=== PATIENT | male | born 1975 | race Caucasian/White ===

== ENCOUNTER 2024-02-29 06:09 | Observation (INO) ==
--- NOTE | 2024-02-10 12:55 | PAT Medication Instructions ---
Medication Instructions Date of Service February 10, 2024 Home Medications atorvastatin 20 mg tablet 20 mg PO HS ibuprofen 200 mg tablet 600 - 800 mg PO QID PRN Pain irbesartan 150 mg tablet 150 mg PO QAM venlafaxine 150 mg capsule,extended release 24 hr 150 mg PO QAM ASK your surgeon for instructions ibuprofen 200 mg tablet 600 - 800 mg PO QID PRN Pain DO NOT take the morning of surgery irbesartan 150 mg tablet 150 mg PO QAM Take morning of surgery With a small sip of water, OTHERWISE NOTHING TO EAT OR DRINK AFTER MIDNIGHT: venlafaxine 150 mg capsule,extended release 24 hr 150 mg PO QAM Take evening before surgery atorvastatin 20 mg tablet 20 mg PO HS Other Notes If you have any questions please call us at [phone] or [phone] or [phone] or [phone]
--- NOTE | 2024-02-17 10:53 | Anesthesiology Consultation ---
Date of Service February 17, 2024 Assessment & Plan (1) Encounter for pre-operative examination: - Infectious disease screening: Per assessment on 02/17/24: No known recent infectious disease contacts or current infectious disease symptoms. - Patient acceptable risk for surgery pending surgeon-ordered PCP preop evaluation ([facility] Natividad Nogueira, appt 02/24). Chart Review Chart Review: Patient seen in Pre Admission Testing Teaching & Discussion Pre-Anesthesia Teaching/Discussion Notes: Instructed NPO after midnight before surgery,except medications with 15 cc of water. Medication instructions provided according to the PAT guidelines. History Surgery Operation Date: 02/29/24 12:55 Proposed Procedures p C3-C4 Anterior Cervical Discectomy and Fusion with Spinal Cord Monitoring - Vahid Norton DO Height/Weight Height: 5 ft 7 in Weight: 97.6 kg Allergies Allergy/AdvReac Type Severity Reaction Status Date / Time No Known Drug Allergies Allergy Verified 02/10/24 11:50 Medications Home Medications Medication Instructions Recorded Confirmed Last Taken atorvastatin 20 mg tablet 20 mg PO HS 02/10/24 02/10/24 Unknown ibuprofen 200 mg tablet 600 - 800 mg PO QID PRN Pain 02/10/24 02/10/24 Unknown irbesartan 150 mg tablet 150 mg PO QAM 02/10/24 02/10/24 Unknown venlafaxine 150 mg 150 mg PO QAM 02/10/24 02/10/24 Unknown capsule,extended release 24 hr Past Medical History Medical History Anxiety Chronic neck pain + right shoulder pain Degenerative disc disease Depression History of cardiac murmur as a child Patient told "innocent heart murmur" as a child which was "outgrown" No issues since History of COVID-19 (2020) "Moderate" flu-like symptoms Hyperlipidemia Hypertension Osteoarthritis Exercise / Class Metabolic Activity II 4-5 Yardwork/Stairs/Walk up hill (one FS: no CP, no SOB) Past Family History Family History Other No family history of adverse response to anesthesia Past Surgical History Surgical History History of tooth extraction S/P epidural steroid injection cervical S/P excision of varicocele left groin/abdomen area Past Anesthesia History No Hx of Anesthesia Complications and No Family Hx of Anesthesia Complications History of PONV No Hx of PONV and No Hx of Motion Sickness Social History Smoking Status: Current every day smoker Smoking cigarettes per day: 10 cigs/day Do You Dip or Chew Tobacco: Yes (1 can/1.5 weeks (Advised none DOS)) Hx Alcohol Use: Yes Alcohol type: beer alcohol intake frequency: a few times a month Hx Substance Use: No substance use type: does not use Review of Systems + snoring. Denies any witnessed apnea episodes. Patient denies chest pain, shortness of breath, dyspnea on exertion, fever, chills, cough, wheezing, palpitations. Physical Exam Vital Signs BP 125/90 P 92 TEMP 98.1 SP02 97%RA RESP 18 Physical Decreased cervical extension range of motion. Full TMJ range of motion. TMD > 3.5 finger breaths Mallampati Score 1 Dentition: + missing teeth, "broken" left upper molar (no current infection/ issue- plan for future removal ~03/2024 per patient, advised to contact surgeon if any acute dental issues prior to surgery) Lungs: clear throughout to auscultation Cardiac: regular rate and rhythm, no murmurs noted Spine: normal Carotid arteries: negative bruit Extremities: no LE edema Trimmed hamilton- patient states he will shave preoperatively per surgeon's instructions Lab Results Anesthesia Preop Results Results Anesthesia Widget: WBC 9.25 K/ul (4.8-10.8) 02/17/24 Hgb 15.7 g/dl (14.0-18.0) 02/17/24 Hct 45.6 % (42.0-52.0) 02/17/24 Plt 274 K/uL (130-400) 02/17/24 Na 138 mmol/L (136-145) 02/17/24 K 4.2 mmol/L (3.5-5.1) 02/17/24 Cl 105 mmol/L (98-107) 02/17/24 CO2 28 mmol/L (21-32) 02/17/24 BUN 10 mg/dl (6-23) 02/17/24 Creat 0.80 mg/dl (0.6-1.4) 02/17/24 Glucose Level 94 mg/dl (70-99(Fasting)) 02/17/24 PT 10.4 Seconds (9.0-12.0) 02/17/24 PTT 28 Seconds (21-31) 02/17/24 INR 1.0 (0.9-1.1) 02/17/24 Urine Color Yellow 02/17/24 Urine Appearance Clear (Clear) 02/17/24 Urine pH 6.0 (4.5-7.5) 02/17/24 Urine Specific Mark 1.004 (1.000-1.030) 02/17/24 Urine Protein Negative (Negative) 02/17/24 Urine Glucose (UA) Negative (Negative) 02/17/24 Urine Ketones Negative (Negative) 02/17/24 Urine Blood Negative (Negative) 02/17/24 Urine Nitrite Negative (Negative) 02/17/24 Urine Bilirubin Negative (Negative) 02/17/24 Urine Urobilinogen Negative (Negative) 02/17/24 Urine Leukocyte Esterase Negative (Negative) 02/17/24 Blood Type O Positive 02/17/24 Antibody Screen NEGATIVE 02/17/24 Testing Electrocardiogram Date: 02/17/24 NSR at 85bpm. "Normal ECG" Chest X-Ray Date: 02/17/24 FINDINGS: Cardiac silhouette is mildly enlarged. Atherosclerosis of the aorta. Mild subsegmental bibasilar atelectasis. No pneumothorax or pleural effusion. Spondylitic spurring of the spine. IMPRESSION: No acute process.
--- OUTSIDE RECORDS SUMMARY | 2024-02-29 06:19 | External Medical Summary | Summary of Care ---
Author Name Unknown Organization [facility] Address [address] [place] [address] Phone [phone] Care Team Providers Care Director Of Business Development Name Role Phone Amelie Powell MD Primary Care Provide r Reason for Visit * Reason Comments pre-op exam Surgery scheduled 02/29/[address] [place] [facility] Encounter Details Date Type Department Care Team (Late st Contact Info) Description 02/25/2024 7:20 AM EDT Office Visit Family Medicine [address] [phone] [address] [place] [phone] Preop examination*; Tobacco use disorder; Primary hypertension; Hyperlipidemia LDL goal <100 Allergies No known active allergiesdocumented as of this encounter (statuses as of 02/25/2024) Medications Medication Sig Dispensed Refills Start Date End Date Status Diclofenac Sodium 50 MG Oral Tablet Delayed Release (Voltaren)Indications :Strain of right trapezius muscle, subsequent encounter Take 1 Tablet by mouth 3 times a day as needed for Pain. Take with food. 90 Tablet 5 09/10/2022 Active Atorvastatin Calcium 20 MG Oral Tablet (Lipitor)Indications: Dyslipidemia, goal LDL below 100 TAKE ONE PILL BY MOUTH AT BEDTIME 90 Tablet 1 10/16/2023 Active Irbesartan 150 MG Oral Tablet (Avapro)Indications:P rimary hypertension TAKE 1 TABLET BY MOUTH EVERY DAY 90 Tablet 1 10/16/2023 Active Venlafaxine HCl ER 150 MG Oral Capsule Extended Release 24 Hour (Effexor XR)Indications:Other depression Take 1 Capsule by mouth in the morning. 90 Capsule 1 12/03/2023 Active Sildenafil Citrate 100 MG Oral TabletIndications:Vas culogenic erectile dysfunction, unspecified vasculogenic erectile dysfunction type TAKE ONE TABLET BY MOUTH ONCE FOR ONE DOSE 1-4 HOURS BEFORE intercourse. no more THAN ONE DOSE in 24 HOURS 5 Tablet 5 01/04/2024 Active documented as of this encounter (statuses as of 02/25/2024) Active Problems Problem Noted Date Diagnosed Date Hyperlipidemia LDL goal <100 02/25/2022 Overview: LDL 118 Primary hypertension 02/04/2022 Strain of right trapezius muscle 01/17/2022 BMI 33.0-33.9,adult 12/19/2021 Overview: 211 Moderate episode of recurrent major depressive d isorder 08/17/2020 Tobacco use disorder 11/01/2003 Undiagnosed cardiac murmurs documented as of this encounter (statuses as of 02/25/2024) Resolved Problems Problem Noted Date Diagnosed Date Resolved Date Right shoulder pain 09/14/2015 09/24/19 21 Depression 09/16/2014 09/24/2020 documented as of this encounter (statuses as of 02/25/2024) Immunizations Name Administration Dates Next Due Pneumococcal Polysaccharide PPV23 (Pneumovax) Seasonal Influenza, Quadrivalent, No Preserve, I M 06/25/2020,05/30/2019 Seasonal Influenza, Split, IIV3, With Preserve, Inj 07/06/2012 TDAP (age 10 and older)(Boostrix) 09/24/2020 TDAP, Age 7 and older, IM (Adacel) 12/29/2001 documented as of this encounter Social History Tobacco Use Types Packs/Day Years Used Date Smoking Tobacco: Every Day Cigarettes 0.5 20 Smokeless Tobacco: Current Chew Alcohol Use Standard Drinks/Week Comments Yes 0 (1 standard drink = 0.6 oz pur e alcohol) occas PHQ-2 Answer Date Recorded PHQ-2 Score 0 07/03/2018 Sex and Gender Information Value Date Recorded Sex Assigned at Not on file Gender Identity Not on file Sexual Orientation Not on file Job Start Date Occupation Industry Not on file Not on file Not on file documented as of this encounter Last Filed Vital Signs Vital Sign Reading Time Taken Comments Blood Pressure 132/90 02/25/2024 7:51 AM EDT Pulse 88 02/25/2024 7:23 AM EDT Temperature - - Respiratory Rate - - Oxygen Saturation 96% 02/25/2024 7:23 AM EDT Inhaled Oxygen Concentration - - Weight 97.6 kg (215 lb 3.2 oz) 02/25/2024 7:23 A M EDT Height - - Body Mass Index 33.71 03/16/2023 11:04 AM EDT documented in this encounter Progress Notes * Anjum Villatoro CRNP - 02/25/2024 7:31 AM EDT Images from the original note were not included. Pre-Operative Medical Evaluation Procedure Information Type of Surgery: C3 to C4 Anterior cervical discectomy and fusion Referring Physician / Surgeon: Dr. Norton Date of procedure: 02/29/2024 Brief History of Present Illness: Past medical hx of HLD, HTN, depression, tobacco use. No concerns today and feeling well. Is having some anxiety about upcoming surgery. HTN on Irbesartan 150 mg daily. Was told to hold for surgery the day of. BP slightly elevated today. Asymptomatic. Drank coffee and smoked prior to appointment. HLD on Atorvastatin. Last lipid panel 02/2023 and well controlled. Has been holding Ibuprofen per surgeon's office instructions. No oral asa use. Using topical Aspercreme for pain; discussed calling surgeons office to see if they recommend holding this. Labs obtained at [facility]; CBC WNL, BMP WNL, EKG NSR, CXR no acute process. Denies any chest pain, SOB, syncope, dizziness, or leg swelling. Medical History Problem List: Hyperlipidemia LDL goal <100 (02/25/2022) Primary hypertension (02/04/2022) Strain of right trapezius muscle (01/17/2022) BMI 33.0-33.9,adult (12/19/2021) Moderate episode of recurrent major depressive disorder (HCC) (2019) Right shoulder pain (09/14/2015) Depression (09/16/2014) Tobacco use disorder (11/01/2003) Undiagnosed cardiac murmurs Current Medications Sildenafil Citrate 100 MG Oral Tablet, TAKE ONE TABLET BY MOUTH ONCE FOR ONE DOSE 1-4 HOURS BEFORE intercourse. no more THAN ONE DOSE in 24 HOURS Venlafaxine HCl ER 150 MG Oral Capsule Extended Release 24 Hour (Effexor XR), 150 mg, Oral, Daily(AM) Atorvastatin Calcium 20 MG Oral Tablet (Lipitor), TAKE ONE PILL BY MOUTH AT BEDTIME Irbesartan 150 MG Oral Tablet (Avapro), TAKE 1 TABLET BY MOUTH EVERY DAY Diclofenac Sodium 50 MG Oral Tablet Delayed Release (Voltaren), 50 mg, Oral, TID PRN Allergies: Patient has no known allergies. Past Medical History: has a past medical history of BMI 33.0-33.9,adult (12/19/2021), COVID-19 (09/11/2021), Depression (09/16/2014), Hyperlipidemia LDL goal <100 (02/25/2022), Moderate episode of recurrent major depressive disorder (HCC) (08/17/2020), Primary hypertension (02/04/2022), Strain of right trapezius muscl e (12/11/2021), Tobacco use disorder, and Undiagnosed cardiac murmurs. Past Surgical History: has a past surgical history that includes oral surgery single tooth; revision of spermatic cord veins (03/28/2005); and Fecal Occult Blood, EIA (05/12/2023). Social History: reports that he has been smoking cigarettes. He has a 10 pack-year smoking history. His smokeless tobacco use includes chew. He reports current alcohol use. He reports that he does not use drugs. Family History: family history includes Cancer in his daughter; Diabetes in his father; Hypertension in his father;Hypoglycemia in his mother; Mental Disorder in his mother; No Past Hx in his brother, sister, sister, and son. Anesthesia History Type of Anesthesia: Local in the past Anesthesia reaction: No personal or family hx of reactions. History of surgical complications: None Personal history of venous thromboembolic disease: None Physical Exam Vitals: 02/25/24 0723 02/25/24 0751 Pulse: 88 SpO2: 96% BP: 148/96 132/90 General: A&Ox3 and no distress Oropharynx: no exudate, no erythema, lips, buccal mucosa, and tongue normal, mucous membranes are moist, and dentition normal Neck: supple, no adenopathy, no bruits, thyroid normal size, non-tender, without nodularity Heart: regular rate & rhythm, no murmur, no gallops, S-1 normal, and S-2 normal Lungs: normal respiratory rate and effort, lungs clear to auscultation Extremities: no edema Skin: warm and dry Surgical Risk Scoring Revised Cardiac Risk Index (RCRI) High-risk type of surgery (examples include vascular and any open intraperitoneal or intrathoracic procedures): 1=Yes History of ischemic heart disease (history of myocardial infarction or positive exercise test, current compliant of chest pain considered to be secondary to myocardia ischemia, use of nitrate therapy, or ECG with pathological Q waves; do not count prior coronary revascularization procedure unless one of the other criteria for ischemic heart disease is present): 0=No History of heart failure: 0=No History of cerebrovascular disease: 0=No Diabetes mellitus requiring treatment with insulin: 0=No Preoperative serum creatinine >2.0 mg/dL (177 micromol/L): 0=No Pt has revised cardiac index score of: One Risk Factor- 1.0% (95% CI: 0.5-1.4) Screening for Obstructive Sleep Apnea (STOP-BANG) Do you Snore loudly? 1=Yes Do you often feel Tired, Fatigued, or Sleep? 0=No Has anyone Observed you Stop Breathing or Choking/Gasping during sleep? 0=No Do you have or are you being treated for High Blood Pressure? 1=Yes BMI over 35? 0=No Age older than 50? 0=No Neck size large? (For males - 17 inches or larger, For females - 16 inches or larger) 1=Yes Male? 1=Yes Score 0-2:low risk TEODORA, 3-4: intermediate risk of TEODORA, 5-8: high risk TEODORA 4 Assessment and Plan Preop examination Tobacco use disorder Primary hypertension - elevated today / asymptomatic / suspect r/t caffeine and smoking prior to appointment - no changes today - encouraged increased fluid intake over the weekend / low salt - has scheduled appt in 2 weeks and will recheck then Hyperlipidemia LDL goal <100 Functional Assessment They are able to walk up a flight of stairs, walk two blocks at a moderate pace, do heavy house work like vacuuming, and grocery shop. The patient's functional status is good (greater than 4 METS). 1 MET: 4 METs: 4-10 METs: Can take care of self, such as eat, dress or use the toilet. Can walk to block or go up a flight of steps. Can do heavy house work. Surgical Risk Assessment Chronic conditions stable at this time, RCRI score 1, VSS, and patient is an acceptable risk for surgery. Medication adjustments: As recommended by Dr. Norton's Office Additional consults or testing: None documented in this encounter Plan of Treatment Upcoming Encounters Date Type Department Care Team (Late st Contact Info) Description 03/21/2024 11:00 AM EDT Office Visit Family Medicine [address] [place] [address] Amelie Powell MD [address] [place] [address] [place] [address] Health Maintenance Due Date Last Done Comments HIV Screening 1988 Hepatitis B (1 of 3 - 19+ 3-dose series) 1992 Cologuard 2018 Colonoscopy 2018 Sigmoidoscopy 2018 Depression Monitoring 09/24/2018 09/24/2017 Pneumococcal Vaccine: Pediatrics (0 to 5 Years) and At-Risk Patients (6 to 64 Years) (2 of 2 - PCV) 09/24/2021 09/24/2020 COVID-19 Vaccine (1 - 2022- season) 2023 Zoster Vaccines (1 of 2) 2023 Influenza Vaccine (FLU shot) (Season Ended) 2024 06/25/2020, 05/30/2019, 07/06/2012 Colorectal Cancer Screening 05/12/2024 Fecal Occult Blood Test 05/12/2024 05/12/2023, 05/12 GFR 02/16/2025 02/17/2024, 02/28, 09/14/2015, Additional history exists Albumin/Creatinine Ratio 03/12/2026 03/12/2023 Diabetes Screening 02/16/2027 02/17/2024, 0 03/12/2023, 04/12/2019, Additional history exists Lipid Panel 03/12/2028 03/12/2023, 11/30, 09/24/2015 DTaP,Tdap,and Td Vaccines (3 - Td or Tdap) 09/24/2030 09/24/2020, 12/29/2001 GARDASIL-HPV IMMUNIZATION SERIES Aged Out No longer eligible based on patient's age to complete this topic MENINGOCOCCAL (MENACTRA/MENVEO) Aged Out No longer eligible based on patient's age to complete this topic documented as of this encounter Medical Devices Not on filedocumented as of this encounter Visit Diagnoses Diagnosis Preop examination- Primary Preoperative examination, unspecified Tobacco use disorder Primary hypertension Unspecified essential hypertension Hyperlipidemia LDL goal <100 Other and unspecified hyperlipidemia documented in this encounter Care Teams Director Of Business Development Relationship Specialty Start Date End Date Amelie Powell MD [address] [place] [address] [place] [phone] PCP - General Family Medicine 12/22/23 documented as of this encounter
--- OUTSIDE RECORDS SUMMARY | 2024-02-29 06:19 | External Medical Summary | Summary of Care ---
Author Name Unknown Organization [facility] Address [address] [place] [address] Phone [phone] Care Team Providers Care Employment Interviewer Name Role Phone Amelie Powell MD Primary Care Provide r Reason for Visit * Reason Comments pre-op exam Surgery scheduled 02/29/[address] Norton at [facility] [place]. Encounter Details Date Type Department Care Team (Late st Contact Info) Description 02/25/2024 7:20 AM EDT Office Visit Family Medicine [address] [phone] [address] [place] [address] Preop examination*; Tobacco use disorder; Primary hypertension; [...] they recommend holding this. Labs obtained at [facility]; CBC WNL, BMP WNL, EKG NSR, CXR [...] or testing: None documented in this encounter Nursing Notes * Ludmila Rose LPN - 02/25/2024 8:27 AM EDT Pre op form faxed with office visit note. documented in this encounter Plan of Treatment Upcoming Encounters Date Type Department Care Team (Late st Contact Info) Description 03/21/2024 11:00 AM EDT Office Visit Family Medicine [address] [place] [address] Amelie Powell MD [address] [place] [address] [place] [phone] Health Maintenance Due Date Last Done Comments [...] Additional history exists Lipid Panel 03/12/2028 03/12/2023, 04/08/2021, 09/24/2015 DTaP,Tdap,and Td Vaccines (3 - Td [...] hyperlipidemia documented in this encounter Care Teams Employment Interviewer Relationship Specialty Start Date End Date Amelie Powell MD [address] [place] [address] [place] [phone] PCP - General Family Medicine 12/22/23 documented as of this encounter
--- OUTSIDE RECORDS SUMMARY | 2024-02-29 06:19 | External Medical Summary | Summary of Care ---
Author Name Unknown Organization [facility] Address [address] [place] [address] Phone [phone] Care Team Providers Care Ux Information Architect Name Role Phone Amelie Powell MD Primary Care Provide r Encounter Details Date Type Department Care Team (Late st Contact Info) Description 02/19/2024 Orders Only Family Medicine [address] [place] [phone] Amelie Powell MD [address] [place] [address] [place] [phone] Allergies No known active allergiesdocumented as of this encounter (statuses as of 02/19/2024) Medications Medication Sig Dispensed Refills Start Date End Date Status Diclofenac Sodium 50 MG Oral Tablet Delayed Release (Voltaren)Indicatio ns:Strain of right trapezius muscle, subsequent encounter Take 1 Tablet by mouth 3 times a day as needed for Pain. Take with food. 90 Tablet 5 09/10/2022 Active Additional Information Patient not taking.Reported on 12/17/2023 Atorvastatin Calcium 20 MG Oral Tablet (Lipitor)Indication s:Dyslipidemia, goal LDL below 100 TAKE ONE PILL BY MOUTH AT BEDTIME 90 Tablet 1 10/16/2023 Active Irbesartan 150 MG Oral Tablet (Avapro)Indications :Primary hypertension TAKE 1 TABLET BY MOUTH EVERY DAY 90 Tablet 10/16/2023 Active Venlafaxine HCl ER 150 MG Oral Capsule Extended Release 24 Hour (Effexor XR)Indications:Othe r depression Take 1 Capsule by mouth in the morning. 90 Capsule 1 12/03/2023 Active Sildenafil Citrate 100 MG Oral TabletIndications:V asculogenic erectile dysfunction, unspecified vasculogenic erectile dysfunction type TAKE ONE TABLET BY MOUTH ONCE FOR ONE DOSE 1-4 HOURS BEFORE intercourse. no more THAN ONE DOSE in 24 HOURS 5 Tablet 5 01/04/2024 Active documented as of this encounter (statuses as of 02/19/2024) Active Problems Problem Noted Date Diagnosed Date Hyperlipidemia LDL goal <100 02/25/2022 Overview: LDL 118 Primary hypertension 02/04/2022 Strain of right trapezius muscle 01/17/2022 BMI 33.0-33.9,adult 12/19/2021 Overview: 211 Moderate episode of recurrent major depressive d isorder 08/17/2020 Tobacco use disorder 11/01/2003 Undiagnosed cardiac murmurs documented as of this encounter (statuses as of 02/19/2024) Resolved Problems Problem Noted Date Diagnosed Date Resolved Date Right shoulder pain 09/14/2015 09/24/19 21 Depression 09/16/2014 09/24/2020 documented as of this encounter (statuses as of 02/19/2024) Immunizations Name Administration Dates Next Due Pneumococcal [...] on file documented as of this encounter Plan of Treatment Upcoming Encounters Date Type Department Care Team (Late st Contact Info) Description 02/25/2024 7:20 AM EDT Office Visit [address] [place] [phone] Anjum Villatoro CRNP [address] [place] [address] [place] [phone] 03/21/2024 11:00 AM EDT Office Visit [address] [place] [phone] Amelie Powell MD [address] [place] [address] [place] [phone] Health Maintenance Due Date Last Done Comments HIV Screening 1988 Hepatitis B (1 of 3 - 19+ 3-dose series) 1992 Cologuard 2018 Colonoscopy 2018 Sigmoidoscopy 2018 Depression Monitoring 09/24/2018 09/24/2017 Pneumococcal Vaccine: Pediatrics (0 to 5 Years) and At-Risk Patients (6 to 64 Years) (2 of 2 - PCV) 09/24/2021 09/24/2020 COVID-19 Vaccine (1 - season) 2023 Zoster Vaccines (1 of 2) 2023 Influenza Vaccine (FLU shot) (Season Ended) 2024 06/25/2020, 05/30/2019, 07/06/2012 Colorectal Cancer Screening 05/12/2024 Fecal Occult Blood Test 05/12/2024 05/12/2023, 05/12 GFR 02/16/2025 02/17/2024, 0710/2022, 09/14/2015, Additional history exists Albumin/Creatinine Ratio 03/12/2026 03/12/2023 Diabetes Screening 02/16/2027 02/17/2024, 0 03/12/2023, 04/12/2019, Additional history exists Lipid Panel 03/12/2028 03/12/2023, 04/2 08/2021, 09/24/2015 DTaP,Tdap,and Td Vaccines (3 - Td or Tdap) 09/24/2030 09/24/2020, 12/29/2001 GARDASIL-HPV IMMUNIZATION SERIES Aged Out No longer eligible based on patient's age to complete this topic MENINGOCOCCAL (MENACTRA/MENVEO) Aged Out No longer eligible based on patient's age to complete this topic documented as of this encounter Medical Devices Not on filedocumented as of this encounter Procedures Procedure Name Priority Date/Time Associated Diagnosis Comments XR CHEST 2 VIEWS Routine 02/17/2024 CHEMISTRY-OUTSIDE Routine 02/17/2024 documented in this encounter Results * CHEMISTRY-OUTSIDE (02/17/2024) Not all results display below - see scan for full detail OUTSIDE LAB (SEE SCANNED REPORT) Comment:[facility] PRE ADMISSION-C BCD,BMP CREATININE-OUTSID E LAB 0.80 0.6 - 1.4 MG/DL OUTSIDE LAB (SEE SCANNED REPORT) EGFR-OUTSIDE LAB 104.2 ML/MIN OUT SIDE LAB (SEE SCANNED REPORT) POTASSIUM-OUTSIDE LAB 4.2 3.5 - 5.1 MMOL OUTSIDE LAB (SEE SCANNED REPORT) GLUCOSE-OUTSIDE LAB 94 70 - 99 MG/DL OUTSIDE LAB (SEE SCANNED REPORT) HOURS FASTING OUTSID E LAB (SEE SCANNED REPORT) TRIGLYCERIDES-OUT SIDE LAB OUTSIDE LAB (SEE SCANNED REPORT) CHOLESTEROL-OUTSI DE LAB OUTSIDE LAB (SEE SCANNED REPORT) HDL-OUTSIDE LAB OUTS [facility] (SEE SCANNED REPORT) CHOL/HDL RATIO-OUTSIDE LAB OUTSIDE [facility] (SEE SCANNED REPORT) LDL (CALCULATED)-OUTS [facility] OUTSIDE LAB (SEE SCANNED REPORT) LDL (DIRECT MEASURE)-OUTSIDE LAB OUTSIDE LAB (SEE SCANNED REPORT) HEMOGLOBIN, U2M-CXLDTHN LAB OUTSIDE LAB (SEE SCANNED REPORT) PHOSPHORUS-OUTSID E LAB OUTSIDE LAB (SEE SCANNED REPORT) PTH-OUTSIDE LAB OUTS [facility] (SEE SCANNED REPORT) MICROALBUMIN RATIO-OUTSIDE LAB OUTSIDE [facility] B (SEE SCANNED REPORT) PROTEIN, UA-OUTSIDE LAB OUTSIDE LAB (SEE SCANNED REPORT) HGB 15.7 14 - 18 G/DL OUTSIDE LAB (SEE SCANNED REPORT) 02/17/2024 Vahid Norton DO LABORATORY OUTSIDE LAB (SEE SCANNED REPORT) * XR CHEST 2 VIEWS (02/17/2024) Anatomical Region Laterality Modality Chest Other 02/17/2024 Vahid Norton DO RADIOLOGY ( RAD GENERAL) documented in this encounter Care Teams Ux Information Architect Relationship Specialty Start Date End Date Amelie Powell MD [address] [place] [address] [place] Wu [phone] PCP - General Family Medicine 12/22/23 documented as of this encounter
--- OUTSIDE RECORDS SUMMARY | 2024-02-29 06:19 | External Medical Summary | Summary of Care ---
Author Name Unknown Organization [facility] Address [address] [place] [address] Phone [phone] Care Team Providers Care Training And Development Director Name Role Phone Amelie Powell MD Primary Care Provide r Reason for Visit * Reason Onset Date Comments Med Request 02/23/2024 Encounter Details Date Type Department Care Team (Late st Contact Info) Description 02/23/2024 Telephone Family Medicine [address] [phone] Amelie Powell MD [address] [place] [address] [place] [address] Med Request Allergies No known active allergiesdocumented as of this encounter (statuses as of 02/23/2024) Medications Medication Sig Dispensed Refills Start Date [...] as of this encounter (statuses as of 02/23/2024) Active Problems Problem Noted Date Diagnosed Date Hyperlipidemia LDL goal <100 02/25/2022 Overview: LDL 118 Primary hypertension 02/04/2022 Strain of right trapezius muscle 01/17/2022 BMI 33.0-33.9,adult 12/19/2021 Overview: 211 Moderate episode of recurrent major depressive d isorder 08/17/2020 Tobacco use disorder 11/01/2003 Undiagnosed cardiac murmurs documented as of this encounter (statuses as of 02/23/2024) Resolved Problems Problem Noted Date Diagnosed Date Resolved Date Right shoulder pain 09/14/2015 09/24/19 21 Depression 09/16/2014 09/24/2020 documented as of this encounter (statuses as of 02/23/2024) Immunizations Name Administration Dates Next Due Pneumococcal [...] on file documented as of this encounter Miscellaneous Notes * Telephone Encounter - Natasha Christensen LPN - 02/23/2024 11:47 AM EDT Left message for patient. Advised that the surgeon will manage post op pain control and prescriptions. * Telephone Encounter - Opal Rodriguez OSA - 02/23/2024 11:10 AM EDT Patient is having surgery on 02/29/24 requesting something for pain limited on what to take with upcoming surgery requesting call back to discuss documented in this encounter Plan of Treatment Upcoming Encounters Date Type Department Care Team (Late st Contact Info) Description 02/25/2024 7:20 AM EDT Office [place] [address] [place] [phone] Anjum Villatoro CRNP [address] [place] [address] [place] [phone] 03/21/2024 11:00 AM EDT Office Visit [address] [place] [phone] Amelie Powell MD [address] [place] [address] [place] [phone] Health Maintenance Due Date Last Done Comments [...] Not on filedocumented as of this encounter Care Teams Training And Development Director Relationship Specialty Start Date End Date Aemlie Powell MD [address] [place] [address] [place] Wu [phone] PCP - General Family Medicine 12/22/23 documented as of this encounter
--- OUTSIDE RECORDS SUMMARY | 2024-02-29 06:19 | External Medical Summary | Summary of Care ---
Author Name Unknown Organization [facility] Address [address] [place] [address] Phone [phone] Care Team Providers Care Mathematics Technician Name Role Phone Amelie Powell MD Primary Care Provide r Encounter Details Date Type Department Care Team (Late st Contact Info) Description 02/17/2024 Result Scan Unspecified Department <No scans attached> Allergies No known active allergiesdocumented as of [...] 7:20 AM EDT Office Visit Family Medicine [address] [phone] Anjum Villatoro CRNP [address] [place] [address] [place] [phone] 03/21/2024 11:00 AM EDT Office Visit Family Medicine [address] [place] [phone] Amelie Powell MD [address] [place] [address] [place] [phone] Health Maintenance Due Date Last Done Comments [...] Procedure Name Priority Date/Time Associated Diagnosis Comments OUTSIDE LAB RESULTS 02/17/2024 OUTSIDE LAB RESULTS 02/17/2024 EKG SCANNED RESULT 02/17/2024 documented in this encounter Results * OUTSIDE LAB RESULTS (02/17/2024) 02/17/2024 No Physician Data Unknown LABORATORY * OUTSIDE LAB RESULTS (02/17/2024) 02/17/2024 No Physician Data Unknown LABORATORY * EKG SCANNED RESULT (02/17/2024) 02/17/2024 No Physician Data Unknown EKG documented in this encounter Care Teams Mathematics Technician Relationship Specialty Start Date End Date Amelie Powell MD [address] [place] [address] [place] [phone] PCP - General Family Medicine 12/22/23 documented as of this encounter
[2024-02-29] MEDS: LR 60ML/HR IV SCH (06:43)
[2024-02-29] MEDS: CeleBREX 200 MG CAP PO SCH (06:44)
[2024-02-29] MEDS: ACETAMINOPHEN 500 MG TAB PO SCH (06:45)
[2024-02-29] MEDS: GABAPENTIN 900 MG DOSE PO SCH (06:45)
[2024-02-29] MEDS: LR 15ML/HR IV SCH (06:58)
[2024-02-29] MEDS ORDERED: ROCURONIUM BROMIDE 10 MG/ML 5 ML VIAL IV ONE (07:12)
[2024-02-29] MEDS ORDERED: LIDOCAINE 2% 2 ML VIAL/AMP(20MG/ML) INFIL ONE (07:12)
[2024-02-29] MEDS ORDERED: PROPOFOL IV EMULSION 10 MG/ML 20 ML VIAL IV ONE (07:12)
[2024-02-29] MEDS ORDERED: DEXAMETHASONE SOD INJ 4 MG/ML VIAL ONE (07:12)
[2024-02-29] MEDS ORDERED: MIDAZOLAM HCL 1 MG/ML 2ML VIAL ONE (07:13)
[2024-02-29] MEDS ORDERED: fentaNYL citrate PF 100 MCG/2 ML VIAL ONE (07:13)
[2024-02-29] MEDS ORDERED: SUGAMMADEX SODIUM 200 MG/2 ML VIAL IV ONE (07:14)
[2024-02-29] MEDS ORDERED: KETAMINE HCL 10MG/ML SYR ONE (07:14)
[2024-02-29] MEDS ORDERED: ONDANSETRON INJ 2 MG/ML 2 ML VIAL ONE (07:14)
--- NOTE | 2024-02-29 07:36 | History & Physical Bridge Note ---
Date of Service February 29, 2024 History & Physical Bridge Note I have examined the patient, reviewed the History & Physical and in the interval since the performance of the History & Physical I have noted the following changes of clinical significance: no changes noted
--- NOTE | 2024-02-29 07:37 | History & Physical Report ---
Date of Service February 29, 2024 Assessment & Plan (1) Cervical stenosis of spinal canal: Plan: C3-C4 anterior cervical discectomy and fusion History of Present Illness Chief Complaint: Neck and arm pain Primary Care Provider: Faheem Clark MD This is a 48-year-old male presents for chronic persistent neck and arm pain a failed course of nonoperative care is here for surgical invention. Allergies Allergy/AdvReac Type Severity Reaction Status Date / Time No Known Drug Allergies Allergy Verified 02/29/24 06:39 lactose AdvReac Intermediate Diarrhea Verified 02/29/24 06:39 Home Medications Medication Instructions Recorded Confirmed Type atorvastatin 20 mg tablet 20 mg PO HS 02/10/24 02/29/24 History ibuprofen 200 mg tablet 600 - 800 mg PO QID PRN Pain 02/10/24 02/29/24 History irbesartan 150 mg tablet 150 mg PO QAM 02/10/24 02/29/24 History venlafaxine 150 mg 150 mg PO QAM 02/10/24 02/29/24 History capsule,extended release 24 hr acetaminophen 500 mg tablet 1,500 mg PO BID PRN Pain 02/29/24 02/29/24 History lidocaine HCl 4 % topical cream 1 applic topical BID PRN Pain 02/29/24 02/29/24 History (Aspercreme (lidocaine HCl)) Past Med/Surg History Problem List (Updated 02/29/24 @ 07:36 by Vahid Norton DO) Cervical stenosis of spinal canal Encounter for pre-operative examination Medical History Anxiety Chronic neck pain + right shoulder pain Degenerative disc disease Depression History of cardiac murmur as a child Patient told "innocent heart murmur" as a child which was "outgrown" No issues since History of COVID-19 (2020) "Moderate" flu-like symptoms Hyperlipidemia Hypertension Osteoarthritis Surgical History History of tooth extraction S/P epidural steroid injection cervical S/P excision of varicocele left groin/abdomen area Family History Other No family history of adverse response to anesthesia Social History Smoking Status: Current every day smoker Tobacco Type: Cigarettes and Smokeless Tobacco (Dip or Chew) Cigarettes Per Day: 10 cigs/day; Second Hand Exposure: No; Do You Dip or Chew Tobacco: Yes (1 can/1.5 weeks (Advised none DOS)); Tobacco Cessation Education Requested by Patient: No Hx Alcohol Use: Yes Alcohol type: beer Hx Substance Use: No Preferred Language: Welsh Communication Ability: Effective Elastic Tape Inserter Required: No Beliefs That Will Affect Care: None Current Living Situation: Significant Other Other Information That Helps Us Care for You: No Feels Safe at Home: Yes Safety Concerns: Feels Safe At This Time Assistive Devices: Contacts Physical Exam Physical Exam: Patient is alert and oriented heart regular in rhythm Lungs clear Results & Data Results & Data Vital Signs (Past 12 Hours) Vital Signs Temp Pulse Resp BP Pulse Ox O2 Del Method 02/29/24 06:37 36.4 C L 85 20 142/107 H 95 Room Air
[2024-02-29] MEDS: ceFAZolin 2000MG 2,000 MG/15 ML SYR IV SCH ×2 (07:45→14:02)
[2024-02-29] MEDS: ceFAZolin 330 MG/ML 1 GM VIAL ONE (08:18)
[2024-02-29] MEDS ORDERED: ePHEDrine sulfate 50 MG/5 ML SYR ONE (08:21)
[2024-02-29] MEDS ORDERED: PHENYLEPHRINE 100MCG/ML 10ML SYR IV ONE (08:21)
--- NOTE | 2024-02-29 09:05 | Operative Report ---
Post Operative Report Pre & Post Diagnosis Operation Date: 02/29/24 07:45 Pre-Op Diagnosis: Cervical Spine Pain, Foraminal Stenosis of Cervica Post-Op Diagnosis: Cervical Spine Pain, Foraminal Stenosis of Cervica I identified the patient and participated in the time-out.: Yes Procedure Operation Date: 02/29/24 07:45 Actual Procedures #1 anterior cervical discectomy with bilateral foraminotomies C3-C4. #2 anterior cervical arthrodesis C3-C4. #3 placement of Spira 8 mm cage filled with os design bone graft C3-C4. #4 application of K2 M plate and screws across C3-C4. Surgeon Vahid Norton, DO Trap Setter Ioana Aldana Estimated Blood Loss 10 Findings See Below The patient is 5 foot 7 weighing over 97 kg with a BMI in excess of 33. Patient's body habitus did contribute to significant technical difficulty with positioning exposure and the procedure itself adding at least 50% increased operative time. Specimens None Indications This is a 48-year-old male who presents above-mentioned diagnosis of failed course of nonoperative care is here for surgical invention. Description of Procedure Patient was met with identified informed consent obtained. Patient was then taken to the operative suite underwent patient placed in supine position on the Hayden table head Michaud head over. All bony promises well-padded eyes inspected to ensure no external pressure placed upon the. This point the anterior cervical spine was prepped and draped in normal sterile fashion. The assistance of fluoroscopy identified the C3-C4 disc base and a transverse incision was placed on the right anterior aspect the cervical spine overlying this region. Blunt dissection with assistance of bipolar electrocautery was formed down to and exposing the anterior cervical spine from C3-C4. Exposure was complicated secondary to patient's body habitus. We had to use our larger retractor blades for exposure. Complete discectomy of C3-C4 was then performed up to the uncovertebral notch bilaterally. [place] distracting pins again utilized. Removed all posterior annular fibers longitudinal ligament bilateral foraminotomies performed. Endplates burred to subcortical bleeding bone and a 8 mm spiral cage filled with os design bone graft tapped in position. Distracting and pressors removed and a K2 M plate and screws applied with the assistance of fluoroscopy. The incision was then copiously irrigated explored to ensure no damage to surrounding structures or remaining bleeding. 10 round DELFINO drain inserted. The incision was then closed with 2 Vicryl in the fascia and 4 Monocryl for final skin closure. Steri-Strips sterile dressings placed. Patient waken taken PACU stable condition. Please note spinal cord monitoring was utilized at the procedure no changes noted. Lastly Ioana Aldana was present at the entire procedure and brought the patient positioning complex portion of the surgery and final skin closure I attest to the content of the Intraoperative Record and any orders documented therein. Any exceptions are noted below.
[2024-02-29] MEDS ORDERED: HYDROmorphone INJ 2 MG/ML SYR/VIAL IV PRN (09:21)
[2024-02-29] MEDS ORDERED: ONDANSETRON INJ 2 MG/ML 2 ML VIAL IV PRN ×2 (09:21→11:08)
[2024-02-29] MEDS ORDERED: ATROPINE SULFATE 0.1 MG/ML 10ML SYR IV PRN (09:21)
[2024-02-29] MEDS ORDERED: PROMETHAZINE HCL 6.25 MG in SODIUM CHLORIDE 0.9% 50 ML IV PRN (09:21)
[2024-02-29] MEDS ORDERED: ePHEDrine sulfate 50 MG/ML AMP IV PRN (09:21)
[2024-02-29] MEDS: fentaNYL citrate PF 100 MCG/2 ML VIAL IV PRN (09:25)
[2024-02-29] MEDS: fentaNYL citrate PF 100 MCG/2 ML VIAL ONE (09:39)
[2024-02-29] MEDS: KETOROLAC 30 MG/ML VIAL IV PRN (09:48)
[2024-02-29] MEDS ORDERED: LORazepam 0.5 MG in SYRINGE 0.25 ML IV PRN (11:08)
[2024-02-29] MEDS ORDERED: DO NOT ADMINISTER PNEUMOCOCCAL VACCINE PRN (11:08)
[2024-02-29] MEDS ORDERED: MAGNESIUM HYDROXIDE SUSP 30 ML UDC PO PRN (11:08)
[2024-02-29] MEDS ORDERED: HYDROmorphone INJ 1 MG/ML SYRINGE IV PRN (11:08)
[2024-02-29] MEDS ORDERED: RACEPINEPHRINE 2.25% NEBU SOLN 0.5 ML VIAL INH PRN (11:08)
[2024-02-29] MEDS ORDERED: PROMETHAZINE HCL 12.5 MG in SODIUM CHLORIDE 0.9% 50 ML IV PRN (11:08)
[2024-02-29] MEDS ORDERED: hydrOXYzine HCl 25 MG TAB PO PRN (11:08)
[2024-02-29] MEDS ORDERED: ONDANSETRON 4 MG OD TAB PO PRN (11:08)
[2024-02-29] MEDS ORDERED: diphenhydrAMINE Capsule 25 MG CAP PO PRN (11:08)
[2024-02-29] MEDS ORDERED: ACETAMINOPHEN 1,000 MG/100 ML VIAL IV PRN (11:08)
[2024-02-29] MEDS ORDERED: bisacodyL 10 MG SUPP PR PRN (11:08)
[2024-02-29] MEDS ORDERED: ALUMINUM/MAGNESIUM SUSP 30 ML UDC PO PRN (11:08)
[2024-02-29] MEDS ORDERED: SOD PHOSPHATE/SOD BIPHOSPHATE ENEMA 132 ML BTL PR PRN (11:08)
[2024-02-29] MEDS ORDERED: HYDROmorphone INJ 0.5 MG/0.5 ML SYR IV PRN (11:08)
[2024-02-29] MEDS ORDERED: LORazepam 0.5 MG TAB PO PRN (11:08)
[2024-02-29] MEDS ORDERED: dexAMETHasone 8 MG in SYRINGE 0 ML IV PRN (11:08)
[2024-02-29] MEDS ORDERED: ACETAMINOPHEN 500 MG TAB PO PRN (11:08)
[2024-02-29] MEDS ORDERED: FAMOTIDINE 20 MG TAB PO PRN (11:08)
[2024-02-29] MEDS ORDERED: DO NOT ADMINISTER FLU VACCINE PRN (11:08)
[2024-02-29] MEDS ORDERED: NALOXONE HCL 0.4 MG/1 ML VIAL/CARP IV PRN (11:08)
[2024-02-29] MEDS ORDERED: METOCLOPRAMIDE HCL INJ 5 MG/ML 2 ML VIAL IV PRN (11:08)
[2024-02-29] MEDS: ACETAMINOPHEN 1,000 MG/100 ML VIAL IV STA (11:22)
[2024-02-29] MEDS: LACTATED RINGER'S 1,000 ML IV SCH (11:34)
--- NOTE | 2024-02-29 12:54 | Fluoroscopy Report ---
FL cervical 2-3V CLINICAL HISTORY: ACDF C3-C4 COMPARISON STUDY: None. FLUOROSCOPY TIME: 13.7 seconds. FLUOROSCOPY IMAGES: 2 Ka,r: 4.4 mGy FINDINGS: Anterior cervical discectomy and fusion at C3-C4. The hardware appears intact. Partially vi sualized surgical sponge the discectomy site. This was removed on the second image. An endotracheal t ube is partially visualized. IMPRESSION: Fluoroscopic assistance as above. ACT 112: Negative or not required by law. Electronically signed by: Willian Ladd M.D. 02/29/2024 12:53 PM
[2024-02-29] MEDS: oxyCODONE HCL IR 5 MG TAB (IMMEDIATE RELEASE) PO PRN (14:02)
[2024-02-29] MEDS: DOCUSATE SODIUM/SENNA 50/8.6MG TAB PO SCH (20:20)
[2024-02-29] MEDS: ATORVASTATIN 20 MG TAB PO SCH (20:20)
[2024-03-01] MEDS: POLYETHYLENE (MIRALAX) 17 GM PACK PO SCH (05:44)
[2024-03-01] MEDS: traMADol HCL 50 MG TABLET PO PRN (07:22)
[2024-03-01] MEDS: COUGH DROP (SUGAR FREE) LOZ 24 LOZ/1 BOX BUCCAL ONE (07:22)
[2024-03-01] MEDS: dexAMETHasone 6 MG in SYRINGE 0 ML IV SCH (08:31)
[2024-03-01] MEDS: VENLAFAXINE HCL XR 150 MG CAPXR PO SCH (08:32)
[2024-03-01] MEDS: LOSARTAN POTASSIUM 50 MG TAB PO SCH (08:32)
--- NOTE | 2024-03-01 09:39 | Discharge Summary ---
Date of Service March 01, 2024 Admission HPI Per Admitting Provider This is a 48-year-old male presents for chronic persistent neck and arm pain a failed course of nonoperative care is here for surgical invention. Principal Diagnosis Cervical spinal stenosis with radiculopathy Discharge Data Allergies Allergy/AdvReac Type Severity Reaction Status Date / Time No Known Drug Allergies Allergy Verified 02/29/24 06:39 lactose AdvReac Intermediate Diarrhea Verified 02/29/24 06:39 Procedures Performed Operation Date: 02/29/24 07:45 Actual Procedures p C3-C4 Anterior Cervical Discectomy and Fusion with Spinal Cord Monitoring(Not Applicable) - Vahid Norton DO Ordered Studies 02/29/24 07:45 FL cervical 2-3V Routine Hospital Course (1) Cervical stenosis of spinal canal: Patient underwent anterior cervical discectomy and fusion tolerated this well was taken to the orthopedic floor postoperative. Postop #1 is swallowing well. No hoarseness. Neck pain improved. Arm symptoms improved. Excellent strength testing. DELFINO drain decreasing appropriate. Simply discharged home. Discharge orders instructions from the chart for further review. Total Time Total Time Spent Total Time Spent (In Minutes): 20 minutes Discharge Plan Discharge Items Patient Disposition: Home - Self-Care Reason For Visit: Cervical Spine Pain, Foraminal Stenosis of Cervica Discharge Diagnosis: Cervical spinal stenosis with radiculopathy Activity: As commented below Non-emergency contact: Primary Care Provider Call non-emergency contact if: you have any medication questions Follow-up/Referrals: Faheem Clark MD [Primary Care Provider] - Diet: Regular Addtl Attending Provider Instructions: ACTIVITY RECOMMENDATIONS: SELF CARE INSTRUCTIONS AFTER CERVICAL FUSIONS 1. No smoking. Smoking drastically decreases the chance of a solid fusion. 2. No bending, lifting more than 5 pounds, or twisting (roll like a log when turning in bed). 3. You may shower 3 days after surgery. Thoroughly dry wound. Do not soak in the tub. 4. Cervical collar: Must be worn at all times including sleeping. You may remove the brace only to bath, eat and if you are sitting in a recliner. 5. Please walk as much as you can for exercise. Gradually increase the distance that you walk as your endurance increases. SPECIAL CARE INSTRUCTIONS: VERY IMPORTANT TO READ AND REVIEW A. Do not take any anti-inflammatory medications (i.e. Indocin, Advil, Aspirin, Naprosyn, Aleve, Motrin, etc.) as these may inhibit the chance of a solid fusion. Tylenol is okay to take. B. Your surgical incision has been closed with a cosmetic suture under the skin that will dissolve in about 6 weeks. In 14 days, you can use a pair of clean scissors and cut the suture that is left outside of the skin at the ends of your incision. C. Complications are uncommon, but please contact us if you have any signs or symptoms of: 1. wound infection (fever higher than 102.5 degrees F, redness, separation of wound, drainage, or increasing pain from the incision) 2. blood clots in legs (pain, swelling, redness and warmth in legs) 3. urinary tract infection (fever higher than 102.5 degrees, burning upon urination or increased frequency of urination) 4. nerve problems (inability to walk on your toes or heels, numbness, loss of bowel or bladder control) 5. any other symptoms that concern you. D. Please call the office at if you have any concerns or questions about your operation or recovery. MANAGING PAIN AFTER SPINAL SURGERY 1. Narcotic medication is intended for short-term use and will be provided for surgical pain. Surgical pain usually lasts for a period of 4-6 weeks. Narcotic medication includes Percocet, Vicodin, Darvocet, Tylenol #3 or Lortab. 2. Longer-term pain is more appropriately treated with non-narcotic medication such as Tylenol ES. 3. Muscle spasm is not appropriately treated with narcotics. Muscle relaxers such as Soma, Flexeril or Skelaxin can be used along with Tylenol ES. 4. Remember that we all live with some "aches and pains". This is not unusual or uncommon after an injury or as we get older. 5. We will provide appropriate medication within the normal guidelines of their prescribed use. We will also be very cautious and aware of potential abuse and extended duration of patients' medication needs. 6. Please allow 2-3 days to process refills. Prescriptions will not be mailed but must be picked up at the office. FOLLOW UP VISIT: Keep your scheduled follow-up appointment. Any questions, please call the office at . Pending Studies at Discharge: No Stand-Alone Forms: My [facility], Smoking Cessation Medications and DC Order Prescriptions: New tramadol 50 mg tablet 50 mg PO Q6H PRN (Reason: pain, moderate) Qty: 20 0RF oxycodone 5 mg tablet 5 mg PO Q6H PRN (Reason: pain) Qty: 20 0RF Continued atorvastatin 20 mg Tablet 20 mg PO HS venlafaxine 150 mg Capsule,Extended Release 24hr 150 mg PO QAM irbesartan 150 mg Tablet 150 mg PO QAM ibuprofen 200 mg Tablet 600 - 800 mg PO QID PRN (Reason: Pain) acetaminophen 500 mg Tablet 1,500 mg PO BID PRN (Reason: Pain) lidocaine HCl [Aspercreme (lidocaine HCl)] 4 % Cream 1 applic TOPICAL BID PRN (Reason: Pain) Admission Data Admit Date/Time: 02/29/24 09:07 Attending Provider: Vahid Norton Admit Provider: Vahid Norton Primary Care Provider: Faheem Clark
== END 2024-03-01 11:16 | disposition home or self-care (01) ==
LOC: 3E 06:09 → ASU 06:09